=== PATIENT | male | born 1965 | race Caucasian/White ===

== ENCOUNTER → 2020-09-06 07:32 | Outpatient (CLI) | payer BC, SELFPAY ==
--- NOTE | 2020-09-06 08:10 | MRI_ITS ---
STUDY: MRI RIGHT SHOULDER REASON FOR EXAM: Right shoulder pain and limited range of motion, felt a snap 6 months ago. TECHNIQUE: Standardized fat and water weighted pulse sequences were obtained in all 3 orthogonal planes. COMPARISON: None. FINDINGS: There is a full-thickness tear of the distal anterior supraspinatus tendon (T2 coronal images 12-14) measuring approximately 1.4 x 1.1 cm (length x width). There is mild infraspinatus tendinosis (T2 sagittal image 7) without discrete tendon tear. There is mild subscapularis tendinosis and a small low-grade partial-thickness tear of the bursal surface of the distal subscapularis tendon (T2 axial image 14) measuring 0.8 cm in length. Normal teres minor tendon. Normal supraspinatus muscle. Normal infraspinatus muscle. Normal subscapularis muscle. Normal teres minor muscle. There is a small glenohumeral joint effusion. Normal humeral head and visualized proximal humerus. Normal biceps labral complex. There is a longitudinal split of the extracapsular long biceps tendon (proton-density axial images 16-18) and tendinosis of the intracapsular long biceps tendon (T2 sagittal images 15, 16). Normal labrum. Normal capsulo- ligamentous complex. There is acromioclavicular arthrosis without substantial undersurface osteophytes (T2 sagittal image 17). There is a Type II morphology (curved), with a neutral orientation. There is no subacromial-subdeltoid bursal fluid. Normal visualized coracohumeral and coracoacromial ligaments. Normal deltoid muscle. Normal trapezius muscle. MRI/Upper Ext Joint Only(Routine) IMPRESSION: Full-thickness tear of the supraspinatus tendon. Small low-grade partial-thickness tear and mild tendinosis of the subscapularis tendon. Mild infraspinatus tendinosis. Longitudinal split and tendinosis of the long biceps tendon. Acromioclavicular arthrosis. Small glenohumeral joint effusion. Electronically Signed: Kali Goldstein MD at 9:43 EDT Tel , Service support ,
== END ==
DX: M25.511 Pain in right shoulder (principal); M25.611 Stiffness of right shoulder, not elsewhere classified
CPT/HCPCS: 73221